=== PATIENT | female | born 1975 | race Asian ===

== ENCOUNTER 2020-05-05 05:33 | Inpatient (IN) | payer OTHER ==
[~2020-05-05] VITALS: Ht 152.4 cm; Wt 77.7 kg
[2020-05-05] MEDS ORDERED: LACTATED RINGERS 1,000 ML IV SCH (05:37)
[2020-05-05 05:46] VITALS: BP 131/86
[2020-05-05] MEDS ORDERED: PREN-3 PO (05:47)
[2020-05-05] MEDS ORDERED: SODIUM CITRATE/CITRIC ACID 30 ML UDC PO ONE (06:00)
[2020-05-05] MEDS ORDERED: LACTATED RINGERS 1,000 ML IVBOLUS ONE (06:00)
[2020-05-05] MEDS ORDERED: METOCLOPRAMIDE 5 MG/ML, 2ML IV ONE (06:00)
[2020-05-05] MEDS ORDERED: OXYTOCIN 30U/ 0.9% NaCL 500ML 500 ML ONE (06:12)
[2020-05-05] MEDS ORDERED: NEWBORN KIT ONE (06:12)
[2020-05-05] MEDS ORDERED: METOCLOPRAMIDE 5 MG/ML, 2ML ONE (06:12)
[2020-05-05] MEDS ORDERED: SODIUM CITRATE/CITRIC ACID 30 ML UDC ONE (06:13)
[2020-05-05 07:28] LABS: BASOPHILS % (AUTO) 0 % (0-1); EOSINOPHILS # (AUTO) 0.16 x10^3/uL (0-0.4); EOSINOPHILS % (AUTO) 2 % (1-7); LYMPHOCYTES # (AUTO) 2.57 x10^3/uL (1-3.4); LYMPHOCYTES % (AUTO) 32 % (22-44); MD MORPH REVIEW ONLY; MEAN CORPUSCULAR HEMOGLOBIN 32.4 pg (27.0-34.8); MEAN CORPUSCULAR HGB CONC 33.2 g/dL (32.4-35.8); MEAN CORPUSCULAR VOLUME 97.4 fL (80-100); MEAN PLATELET VOLUME 13.1 fL (7.4-10.4); MONOCYTES # (AUTO) 0.68 x10^3/uL (0.2-0.8); MONOCYTES % (AUTO) 9 % (2-9); NEUTROPHILS # (AUTO) 4.52 x10^3/uL (1.8-6.8); NEUTROPHILS % (AUTO) 57 % (42-75); PLATELET COUNT 190 x10^3/uL (130-400); RED BLOOD COUNT 3.83 x10^6/uL (3.82-5.3); RED CELL DISTRIBUTION WIDTH 14.4 % (9.6-15.2)
[2020-05-05 07:29] LABS: <PLATELET ESTIMATE> ADEQUATE; <RBC MORPHOLOGY> NORMAL; LARGE PLATELETS 1+
[2020-05-05] MEDS ORDERED: MEPERIDINE/PF 25MG/0.5ML IVPush PRN (07:30)
[2020-05-05] MEDS ORDERED: morphine SULFATE 10 MG/ML, 1ML IVPush PRN (07:30)
[2020-05-05] MEDS ORDERED: OXYcodone 5 MG/5 ML ORAL.SOL UDC PO PRN (07:30)
[2020-05-05] MEDS ORDERED: EPHEDRINE 50 MG/ML, 1ML IVPush PRN (07:30)
[2020-05-05] MEDS ORDERED: PROMETHAZINE 12.5 MG SUPP PR PRN (07:30)
[2020-05-05] MEDS ORDERED: ONDANSETRON 2MG/ML, 2ML IVPush PRN (07:30)
[2020-05-05] MEDS ORDERED: FENTANYL PF 100 MCG/2ML IV PRN (07:30)
[2020-05-05] MEDS ORDERED: CEFAZOLIN 1,000 MG ONE (07:36)
[2020-05-05] MEDS ORDERED: EPHEDRINE 50 MG/ML, 1ML ONE (07:36)
[2020-05-05] MEDS ORDERED: OXYTOCIN 10 UNITS/ML, 1ML ONE (07:36)
[2020-05-05] MEDS: ACETAMINOPHEN 325 MG TABLET PO SCH ×3 (09:00→20:53)
[2020-05-05] MEDS: KETOROLAC 30 MG/1 ML IV SCH ×3 (09:00→20:53)
[2020-05-05] MEDS ORDERED: MISOPROSTOL 200 MCG TABLET PR PRN (09:00)
[2020-05-05] MEDS: PRENATAL VIT/IRON/FA 1 EACH TABLET PO SCH (09:00)
[2020-05-05] MEDS: LACTATED RINGERS 1,000 ML IV SCH ×4 (10:00→20:00)
[2020-05-05] MEDS: OXYTOCIN 30U/ 0.9% NaCL 500ML 500 ML IV SCH ×2 (10:05→19:23)
[2020-05-05 10:45] VITALS: BP 162/91
[2020-05-05 14:45] VITALS: BP 123/76
[2020-05-05 16:00] LABS: BASOPHILS # (AUTO) 0.01 x10^3/uL (0-0.1); BASOPHILS % (AUTO) 0 % (0-1); EOSINOPHILS # (AUTO) 0.03 x10^3/uL (0-0.4); EOSINOPHILS % (AUTO) 0 % (1-7); LYMPHOCYTES # (AUTO) 1.56 x10^3/uL (1-3.4); LYMPHOCYTES % (AUTO) 15 % (22-44); MD NO; MEAN CORPUSCULAR HEMOGLOBIN 32.3 pg (27.0-34.8); MEAN CORPUSCULAR HGB CONC 33.2 g/dL (32.4-35.8); MEAN CORPUSCULAR VOLUME 97.4 fL (80-100); MEAN PLATELET VOLUME 12.2 fL (7.4-10.4); MONOCYTES # (AUTO) 0.35 x10^3/uL (0.2-0.8); MONOCYTES % (AUTO) 3 % (2-9); NEUTROPHILS # (AUTO) 8.53 x10^3/uL (1.8-6.8); NEUTROPHILS % (AUTO) 81 % (42-75); PLATELET COUNT 171 x10^3/uL (130-400); RED BLOOD COUNT 3.73 x10^6/uL (3.82-5.3)
[2020-05-05] MEDS: OXYcodone IR 5MG TABLET PO PRN ×2 (18:22→22:35)
[2020-05-05 20:00] VITALS: BP 123/78
[2020-05-05] MEDS: DOCUSATE 100 MG CAPSULE PO PRN (20:54)
[2020-05-06 00:10] VITALS: BP 113/72
[2020-05-06] MEDS: LACTATED RINGERS 1,000 ML IV SCH ×5 (02:00→18:59)
[2020-05-06] MEDS: OXYcodone IR 5MG TABLET PO PRN ×3 (02:31→11:44)
[2020-05-06] MEDS: KETOROLAC 30 MG/1 ML IV SCH ×4 (02:32→20:40)
[2020-05-06] MEDS: ACETAMINOPHEN 325 MG TABLET PO SCH ×4 (02:32→20:40)
[2020-05-06 04:18] VITALS: BP 108/71
[2020-05-06] MEDS: OXYTOCIN 30U/ 0.9% NaCL 500ML 500 ML IV SCH ×2 (05:23→18:59)
[2020-05-06] MEDS: PRENATAL VIT/IRON/FA 1 EACH TABLET PO SCH (08:25)
[2020-05-06] MEDS: SIMETHICONE 80 MG CHEW TAB PO PRN ×2 (08:25→20:40)
[2020-05-06] MEDS: DOCUSATE 100 MG CAPSULE PO PRN ×2 (08:26→20:40)
[2020-05-06 08:29] LABS: BASOPHILS # (AUTO) 0.03 x10^3/uL (0-0.1); BASOPHILS % (AUTO) 0 % (0-1); EOSINOPHILS # (AUTO) 0.18 x10^3/uL (0-0.4); EOSINOPHILS % (AUTO) 2 % (1-7); LYMPHOCYTES # (AUTO) 1.72 x10^3/uL (1-3.4); LYMPHOCYTES % (AUTO) 19 % (22-44); MD NO; MEAN CORPUSCULAR HEMOGLOBIN 32.6 pg (27.0-34.8); MEAN CORPUSCULAR HGB CONC 33.1 g/dL (32.4-35.8); MEAN CORPUSCULAR VOLUME 98.6 fL (80-100); MEAN PLATELET VOLUME 12.1 fL (7.4-10.4); MONOCYTES # (AUTO) 0.62 x10^3/uL (0.2-0.8); MONOCYTES % (AUTO) 7 % (2-9); NEUTROPHILS # (AUTO) 6.58 x10^3/uL (1.8-6.8); NEUTROPHILS % (AUTO) 72 % (42-75); PLATELET COUNT 161 x10^3/uL (130-400); RED BLOOD COUNT 3.49 x10^6/uL (3.82-5.3); RED CELL DISTRIBUTION WIDTH 14.3 % (9.6-15.2)
[2020-05-06 08:38] LABS: ALANINE AMINOTRANSFERASE 28 U/L (12-78); ALBUMIN 1.8 g/dL (3.4-5.0); ANION GAP 7 mmol/L (5-15); CALCIUM 8.3 mg/dL (8.5-10.1); CHLORIDE 111 mmol/L (98-107); CREATININE 0.65 mg/dL (0.55-1.02)
[2020-05-06 08:40] LABS: ALKALINE PHOSPHATASE 99 U/L (45-117); BILIRUBIN,TOTAL 0.3 mg/dL (0.2-1.0); TOTAL PROTEIN 5.5 g/dL (6.4-8.2)
[2020-05-06 08:46] VITALS: BP 113/79
[2020-05-06] MEDS ORDERED: DIPH,PERTUSS(ACELL),TET VAC/PF NC IM-VACC ONE ×2 (12:37→13:00)
[2020-05-06 16:19] LABS: CREATININE,URINE RANDOM 66.5 mg/dL
[2020-05-06 19:35] VITALS: BP 127/73
[2020-05-07] MEDS: OXYTOCIN 30U/ 0.9% NaCL 500ML 500 ML IV SCH (01:23)
[2020-05-07] MEDS: LACTATED RINGERS 1,000 ML IV SCH ×2 (02:00)
[2020-05-07] MEDS: KETOROLAC 30 MG/1 ML IV SCH (02:27)
[2020-05-07] MEDS: ACETAMINOPHEN 325 MG TABLET PO SCH ×4 (02:27→21:41)
[2020-05-07 07:05] VITALS: BP 124/87
[2020-05-07] MEDS: PRENATAL VIT/IRON/FA 1 EACH TABLET PO SCH (09:32)
[2020-05-07] MEDS: IBUPROFEN 600 MG TABLET PO SCH ×3 (09:32→21:41)
[2020-05-07] MEDS: DOCUSATE 100 MG CAPSULE PO PRN ×2 (09:32→21:41)
[2020-05-07 21:35] VITALS: BP 128/75
[2020-05-07] MEDS: SIMETHICONE 80 MG CHEW TAB PO PRN (21:41)
[2020-05-08] MEDS: ACETAMINOPHEN 325 MG TABLET PO SCH ×2 (04:05→10:03)
[2020-05-08] MEDS: IBUPROFEN 600 MG TABLET PO SCH ×2 (04:05→10:03)
[2020-05-08] MEDS: SIMETHICONE 80 MG CHEW TAB PO PRN ×2 (04:06→10:02)
[2020-05-08 07:18] VITALS: BP 139/80
[2020-05-08] MEDS: PRENATAL VIT/IRON/FA 1 EACH TABLET PO SCH (10:02)
[2020-05-08] MEDS: DOCUSATE 100 MG CAPSULE PO PRN (10:02)
[2020-05-08] MEDS ORDERED: IBUP-1222 PO (10:46)
[2020-05-08] MEDS ORDERED: DOCU-131 PO (10:46)
[2020-05-08] MEDS ORDERED: ACET650S21 PO (10:47)
[2020-05-08] MEDS ORDERED: OXYC15TA75 PO (10:47)
== END 2020-05-08 12:49 | disposition home or self-care (01) | DRG 784 ==
LOC: LDIP 05:33 → 2NW 10:20
PROVIDERS: ADMIT Student in an Organized Health Care Education/Training Program; ATTEND Student in an Organized Health Care Education/Training Program
PROC: 10D00Z1 Extraction of Products of Conception, Low, Open Approach (ICD-10-PCS; principal; 2020-05-05)
PROC: 0UB70ZZ Excision of Bilateral Fallopian Tubes, Open Approach (ICD-10-PCS; 2020-05-05)
DX: O99.214 Obesity complicating childbirth (principal); E74.21 Galactosemia; O34.211 Maternal care for low transverse scar from previous cesarean delivery; E66.9 Obesity, unspecified; O75.89 Other specified complications of labor and delivery; G89.18 Other acute postprocedural pain; Z30.2 Encounter for sterilization; Z37.0 Single live birth; Z3A.39 39 weeks gestation of pregnancy
CPT/HCPCS: 36415; 80053; 82570; 84156; 85025; 86592; 86850; 86900; 87635; 88302; 90715; G0378; J0690; J1885; J2590; J2765; J7120